=== PATIENT | female | born 1985 | race Caucasian/White ===

== ENCOUNTER → 2017-02-04 14:30 | Observation (INO) ==
[2017-02-04 13:55] LABS: Bilirubin,Urine Negative (Negative); Blood,Urine Negative (Negative); Clarity,Urine Clear (Clear); Color,Urine Yellow (Yellow); Glucose,Urine (UA) Normal (Normal); Ketones,Urine Negative (Negative); Leukocyte Esterase,Urine Negative (Negative); Nitrite,Urine Negative (Negative); PH,Urine 6.5 pH Units (5.0-8.0); Protein,Urine Negative (Neg-Trace); Specific Gravity,Urine 1.012 (1.010-1.025); Urobilinogen,Urine Normal (Normal)
[2017-02-04 14:06] LABS: Amphetamine Screen,Urine Negative ng/mL (Cutoff=1000); Barbiturate Screen,Urine Negative ng/mL (Cutoff=200); Benzodiazepines Screen,Urine Negative ng/mL (Cutoff=200); Cannabinoid Screen,Urine Negative ng/mL (Cutoff = 50); Cocaine Screen,Urine Negative ng/mL (Cutoff= 300); Opiate Screen,Urine Negative ng/mL (Cutoff=300); Phencyclidine Screen,Urine Negative ng/mL (Cutoff=25)
--- NOTE | 2017-02-04 14:19 | OB/GYN Progress Note ---
Date of Encounter: 02/04/17 Time of Encounter: 14:17 - Assessment and Plan (1) 29 weeks gestation of Current Visit: Yes Status: Acute (2) Constipation Current Visit: Yes Status: Acute Will try Colace and possibly prunes. Importance of adequate hydration also discussed. Pt will notify her OB doc if her symptoms worsen or do not improve. Discharge home with precautions. Qualifiers: Constipation type: slow transit constipation Qualified Code(s): K59.01 - Slow transit constipation Subjective - Subjective Interval history: 31 year-old presenting at 29w1d with c/o loss of mucus plug 3 days ago with new onset rectal pressure today. She reports irregular bowel movements with small amounts. She states she believes she is constipated. Good FM. No contractions, LOF, VB, or other complaints. Antepartum ROS: movement normal, no loss of fluid, no vaginal bleeding, no contractions Objective - Vital Signs Vital Signs: Intake and Output 02/03/17 02/04/17 02/04/17 23:59 07:59 15:59 Other: Weight 132.8 kg Patient Weight 02/04/17 23:59 Weight 132.8 kg - Exam FHR: category 1 FHR comments: NST reactive for GA. Auscultation: bilateral: normal Abdomen: Present: soft, gravid Uterus: Absent: tenderness
== END | disposition home or self-care (01) ==
LOC: 1NENULAB
PROVIDERS: ADMIT Student in an Organized Health Care Education/Training Program; ATTEND Student in an Organized Health Care Education/Training Program

== ENCOUNTER 2017-04-15 06:00 | Inpatient (IN) ==
[2017-04-15] MEDS ORDERED: Metoclopramide 10 MG/2 ML VIAL IVP PRN (06:42)
[2017-04-15] MEDS ORDERED: *HR* Nalbuphine 20 MG/ML AMPUL IVP PRN (06:42)
[2017-04-15] MEDS ORDERED: Naloxone 0.4 MG/ML INJ IVP PRN (06:42)
[2017-04-15] MEDS ORDERED: Famotidine 20 MG/2 ML VIAL IVP PRN (06:42)
--- NOTE | 2017-04-15 07:00 | OB/GYN History & Physical ---
Date of Encounter: 04/15/17 Time of Encounter: 06:57 Assessment and Plan (1) 39 weeks gestation of Current visit: Yes Status: Acute Patient presents to L&D for elective induction. Denies contractions, loss of fluid or vaginal bleeding Good movement. Induction with Cytotec LR at 125ml/hr monitoring Plan for vaginal delivery Per medical record-last visit 04/13 patient was 3/60/-1 (2) Elective induction of labor planned Current visit: Yes Status: Acute Patient is here for an elective induction of labor. Induce with cytotec History of Present Illness HPI: Ms. Morton is a 31 year old female at 39w1d presents to L&D for IOL. She states that this is an elective induction. Patient reports that she is being induced because she is exhausted and family has taken time off to help with the baby at home. Patient denies any loss of fluid, vaginal bleeding or discharge. Reports good movement. Denies any contractions. Denies any pain. Denies any complications with the . Denies any complication with previous and states that it was a spontaneous vaginal delivery. Per medical records the patient has had 3 spontaneous abortions. States that she regularly sees Dr. Davies in the office. Blood type A+ GBS-negative Rubella IgG antibody-Postive 160.8 HbSAG-Nonreactive U-Dmrerwui-Ilpofzwxgql Varicella IgG Antibody-Positive 3.53 HIV-nonreactive Hx of Chlamydia Past Med Surg Social Fam HX - Past Medical History Medical history: no medical history Psychiatric history: no psych history - Past Surgical History Surgical History: no surgical history - Social History Smoking Status: Never smoker Alcohol use: none Drug use: none - Family History Sister Age: 26 Living Status: Still Living Hx Family Cardiac Disorders: No Hx Family Respiratory Disorders: No Hx Family Cancer: No Hx Family GI Disorders: No Hx Family Genitourinary Disorders: No Hx Family Endocrine Disorder: No Hx Family Musculoskeletal Disorders: No Hx Family Neuromuscular Disorders: No Hx Family Neurologic Disorders: No Hx Family HEENT Disorders: No Hx Family Autoimmune Disorders: No Hx Family Reproductive Disorders: No Hx Family Psychosocial Disorders: No Hx Family Medical Disorders: No Obstetrical History - Pregnancies : 5 Para: 1 Term: 1 : 0 Ab's: 3 Livin Medications and Allergies Formula Tablet 1 tab PO DAILY 04/15/17 [History] 3 Allergy/AdvReac Type Severity Reaction Status Date / Time No Known Allergies Allergy Verified 09/23/15 11:02 Review of System OB All systems PM: reviewed and no additional remarkable complaints except as stated Exam - Vital Signs Vital signs: Initial Vital Signs Temp Pulse Resp BP 97.0 F L 96 16 121/71 04/15/17 06:23 04/15/17 06:23 04/15/17 06:23 04/15/17 06:23 - Constitutional Constitutional: well developed, well nourished, no acute distress - Neck Neck exam: full ROM - Lungs Respiratory exam: CTAB - Cardiovascular Cardiovascular exam: RRR, +S1, +S2 - Abdomen Abdomen: Present: bowel sounds normal, gravid, non tender - Extremities Deep Tendon Reflex Grade: 2+ Normal - Vagina Vagina: Present: normal moisture - Cervix Dilation: 3 (Per MD at last visit) Effacement: 60 (Per MD at last visit) Station: -1 (Per MD at last visit) - Anus/Rectum Anus/Rectum: Present: normal perianal skin Results Result Diagrams: 04/15/17 07:00 All other labs normal. - VTE Reasons for not Prescribing Prophylaxis: Treatment not Indicated - Low risk for VTE
[2017-04-15 07:14] LABS: Amphetamine Screen,Urine Negative ng/mL (Cutoff=1000); Barbiturate Screen,Urine Negative ng/mL (Cutoff=200); Benzodiazepines Screen,Urine Negative ng/mL (Cutoff=200); Cannabinoid Screen,Urine Negative ng/mL (Cutoff = 50); Cocaine Screen,Urine Negative ng/mL (Cutoff= 300); Opiate Screen,Urine Negative ng/mL (Cutoff=300); Phencyclidine Screen,Urine Negative ng/mL (Cutoff=25)
[2017-04-15 07:18] LABS: Basophils % 0.2 %; Eosinophils # 0.1 K/mcL (0.0-0.6); Eosinophils % 0.7 %; Hemoglobin 11.2 g/dL (11.5-15.4); Immature Granulocytes % 1.1 % (0-4); Lymphocytes # 2.1 K/mcL (0.6-4.6); Lymphocytes % 20.3 %; Mean Corpuscular HGB Conc 32.9 g/dL (31.6-35.5); Mean Corpuscular Hemoglobin 28.3 pg (28.0-33.3); Mean Corpuscular Volume 85.9 fL (83.0-100.0); Mean Platelet Volume 10.5 fL (9.4-12.4); Monocytes # 0.6 K/mcL (0.0-1.3); Monocytes % 5.8 %; Neutrophils # 7.4 K/mcL (1.6-8.9); Platelet Count 296 K/mcL (140-400); Red Blood Count 3.96 M/mcL (3.82-4.97); Red Cell Distribution Width 14.8 % (11.5-14.5); Segmented Neutrophils % 71.9 %
[2017-04-15] MEDS: Ringers Solution, Lactated 1,000 ML IVC SCH ×2 (07:53→18:24)
[2017-04-15] MEDS ORDERED: miSOPROStol 25 MCG TABLET PO SCH (08:00)
--- NOTE | 2017-04-15 10:04 | Anesthesia Evaluation PreOp ---
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: Denies Any Significant HX Other Medical History: GERD Anesthesia History: No Prior Anesthetic Complications, Past Anesthesia ( attemped tino 5 years ago) : Yes Test: Positive Alcohol Use: none Drug use: none Medications and Allergies Formula Tablet 1 tab PO DAILY 04/15/17 [History] 3 Allergy/AdvReac Type Severity Reaction Status Date / Time No Known Allergies Allergy Verified 09/23/15 11:02 - Meds/Allergy Pre-op Review Medications Reviewed: Yes Allergies Reviewed: Yes Beta Blockers on Current Med List: No Anesthesia Results - Labs 04/15/17 07:00 Anesthesia Exam 121/72 86 16 fht 139 Height: 5'7" Weight: 139 kg NPO (# of Hours): 5 Pain Scale: 0 Pain Scale Used: Numeric (1 - 10) - HEENT Pupil (Motor): Pupils equal Mallampati: II Teeth: Normal Oral Opening: Greater than 3 - NOVELTIES SALES REPRESENTATIVE LOC: Oriented NOVELTIES SALES REPRESENTATIVE Motor: Normal RUE, Normal LUE, Normal RLE, Normal LLE, Normal Face NOVELTIES SALES REPRESENTATIVE Sensory: Normal: RUE, LUE, RLE, LLE, Face - Cardiac Rhythm: Regular Murmur: None - Pulmonary Breath Sounds: bilateral Clear Respiratory Effort: Symmetrical Anesthesia Assess/Plan ASA Score: 3 (MO) Modified [place] Scale for Level of Consciousness: Cooperative, oriented, and tranquil Anesthetic Plan: Regional Autologous Blood: No Monitoring Plan: Standard Monitors Recovery Plan: Other (risks discussed, questions answered, consented)
--- NOTE | 2017-04-15 12:21 | OB Labor Progress Note ---
Date of Encounter: 04/15/17 Time of Encounter: 12:11 Labor Progress Note - Subjective Subjective: Pt feeling occasional contractions - Cervix Cervix: 4/50/-2 - Heart Tones Heart Tones: 130/moderate/+accels/-decels - [place]: occasional contractions - Plan Plan: second dose of 50mcg po cytotec Anticipate
--- NOTE | 2017-04-15 16:20 | OB Labor Progress Note ---
Date of Encounter: 04/15/17 Time of Encounter: 16:18 Labor Progress Note - Subjective Subjective: Pt states she is feeling stronger contractions - Cervix Cervix: 4/75/-2 - Heart Tones Heart Tones: 140/moderate/+accels/-decels - [place]: occasional .IUPC placed - Interventions Interventions: AROM for slightly blood tinged fluid. IUPC and FSE placed - Plan Plan: If no cervical change will start pitocin per policy Anticipate
[2017-04-15] MEDS ORDERED: *HR* FentaNYL (PF) 100 MCG/2 ML VIAL ONE (17:45)
[2017-04-15] MEDS ORDERED: Epidural Premix (fent/bupiv) 110 ML EP ONE (17:45)
[2017-04-15] MEDS ORDERED: *HR* Ropivacaine/PF 0.2% 10 ML AMPUL ONE (17:45)
[2017-04-15] MEDS ORDERED: *HR* Ropivacaine/PF 0.2% 10 ML AMPUL EP ONE (17:48)
[2017-04-15] MEDS ORDERED: *HR* FentaNYL (PF) 100 MCG/2 ML VIAL EP ONE (17:48)
[2017-04-15] MEDS ORDERED: Epidural Premix (fent/bupiv) 110 ML EP SCH (18:00)
[2017-04-15] MEDS ORDERED: Oxytocin 20 units/ LR 1000 mL 20 UNIT/1,000 ML BAG IVC ONE (18:19)
--- NOTE | 2017-04-15 18:24 | Anesthesia Procedures ---
Date of Encounter: 04/15/17 Time of Encounter: 18:22 Procedures: Anesthesia - Epidural/Spinal Patient ID/Chart reviewed: Yes Patient examined: Yes OB Eval: Gestational age: 39 OB Eval: : 5 OB Eval: Hx Para: 1 OB Eval: Dilated at (cm): 4 OB Eval: Contractions: Non-stressed pattern Site Prep: Aseptic Technique, Sterile prep and drape, 0.5% Chlorhexidine/Alcohol Patient position: upright Local Anesthetic: Lidocaine 1% Amount of Local Anesthetic used: 3 Touhy Needle Gauge: 18 Touhy Needle Depth (cm): 10 Catheter Depth at Skin (cm): 20 Test Dose (1.5% Lido + Epi): Volume given (mls): 3 Test Dose Result: Negative Loading Dose: Fentanyl (mcg): 100 Loading Dose: Other: ropivicaine 0.2% 10ml Loading Dose Administered: Thru Touhy Needle Infusion Med: 0.125% Bupivacaine w/ 2 mcg/ml Fentanyl Infusion Rate (mls/hr): 15 (pcea 5 cc q 30") Catheter Secured in Place: Tegaderm Interspace Used: L3-L4 Loss of Resistance (SYEDA): Yes Blood: No CSF: No Paresthesia: No Procedure: aseptic, tolerated well, VSS, effective Vitals + FHT's: 134/78 88 fht 138
--- NOTE | 2017-04-15 21:57 | OB/GYN Procedure Note ---
Delivery - Delivery Date: 04/15/17 Provider: Noe Davies Intrapartum events: none Delivery induction: AROM Delivery augmentation: pitocin Delivery monitor: external FHT, external uterine, internal FHT, internal uterine Anesthesia: epidural Estimated Blood Loss: 300 - Infant (s) Infant A Delivery Date: 04/15/17 Delivery Time: 21:01 Presentation: vertex Position: YURIY Gender: Male Viability: Viable Weight Gram: 3.25 kg at 1 minute: 3 at 5 mins: 8 Shoulder Dystocia: not encountered Specimens collected: cord blood Placenta: spontaneous Cord: nuchal cut - Repair Episiotomy: none Laceration Description: Perineal - 2nd Degree - Complications Delivery complications: none - Disposition Mom disposition: stable in LDR disposition: stable in LDR - Comments Comments: Patient progressed to complete and on the perineum. Category 2 strip was noted. The head delivered spontaneously from right occiput anterior position. Tight nuchal cord 1 was noted and was clamped cut and relieved. The baby subsequently delivered. The baby's weight was pending and had Apgars of 3 and 8. Placenta delivered spontaneously intact. Patient had a second-degree perineal laceration that was repaired in anatomic fashion with 3-0 Monocryl. Estimated blood loss was 300 mL's.
[2017-04-15] MEDS ORDERED: Measles/Mumps/Rubella Vacc 0.5 ML VIAL SQ PRN (22:22)
[2017-04-15] MEDS ORDERED: Acetaminophen 325 MG TABLET PO PRN (22:22)
[2017-04-15] MEDS ORDERED: Oxytocin 20 units/ LR 1000 mL 20 UNIT/1,000 ML BAG IVC SCH (22:22)
[2017-04-15] MEDS: Ibuprofen 600 MG TABLET PO PRN (23:06)
[2017-04-16 04:46] LABS: Basophils % 0.2 %; Eosinophils # 0.1 K/mcL (0.0-0.6); Eosinophils % 0.8 %; Immature Granulocytes % 0.5 % (0-4); Lymphocytes # 2.2 K/mcL (0.6-4.6); Lymphocytes % 16.9 %; Mean Corpuscular HGB Conc 32.3 g/dL (31.6-35.5); Mean Corpuscular Hemoglobin 27.6 pg (28.0-33.3); Mean Corpuscular Volume 85.6 fL (83.0-100.0); Mean Platelet Volume 10.4 fL (9.4-12.4); Monocytes # 0.8 K/mcL (0.0-1.3); Monocytes % 6.1 %; Neutrophils # 9.8 K/mcL (1.6-8.9); Platelet Count 255 K/mcL (140-400); Red Blood Count 3.62 M/mcL (3.82-4.97); Segmented Neutrophils % 75.5 %
[2017-04-16] MEDS ORDERED: Prenatal Vit/FA 1 EACH TABLET PO SCH ×2 (09:00)
[2017-04-16] MEDS: Ibuprofen 600 MG TABLET PO PRN (09:09)
--- NOTE | 2017-04-16 09:18 | Discharge Summary ---
Date of Encounter: 04/16/17 Time of Encounter: 09:15 - Discharge Diagnosis (1) Vaginal delivery Priority: Primary Status: Acute Comments: Continue routine care discharge home today follow up with Dr. Davies in 4-6 weeks (2) Second degree perineal laceration during delivery Priority: Secondary Status: Acute Comments: Continue colace stiz baths prn - Discharge Medications Prescriptions: Ibuprofen [Motrin] 600 mg PO Q6HR PRN #60 tablet PRN Reason: Cramping Docusate [Colace] 100 mg PO BID #60 capsule Home Medications: Formula Tablet 1 tab PO DAILY 04/15/17 [History] Docusate [Colace] 100 mg PO BID #60 capsule 04/16/17 [Rx] Ibuprofen [Motrin] 600 mg PO Q6HR PRN #60 tablet 04/16/17 [Rx] Vit/FA 1 each PO DAILY tablet 04/16/17 [Rx] Allergies/Adverse Reactions: 3 Allergy/AdvReac Type Severity Reaction Status Date / Time No Known Allergies Allergy Verified 09/23/15 11:02 Data Procedures and tests throughout hospitalization: Laboratory Tests 04/15/17 04/15/17 04/16/17 07:00 07:00 04:27 WBC 10.3 12.9 H RBC 3.96 3.62 L Hgb 11.2 L 10.0 L Hct 34.0 L 31.0 L MCV 85.9 85.6 MCH 28.3 27.6 L MCHC 32.9 32.3 RDW 14.8 H 15.0 H Plt Count 296 255 MPV 10.5 10.4 Immature Gran % 1.1 0.5 Seg Neutrophils % 71.9 75.5 Lymphocytes % 20.3 16.9 Monocytes % 5.8 6.1 Eosinophils % 0.7 0.8 Basophils % 0.2 0.2 Neutrophils # 7.4 9.8 H Lymphocytes # 2.1 2.2 Monocytes # 0.6 0.8 Eosinophils # 0.1 0.1 Basophils # 0.0 0.0 Urine Opiates Screen Negative Ur Barbiturates Screen Negative Ur Phencyclidine Scrn Negative Ur Amphetamines Screen Negative U Benzodiazepines Scrn Negative Urine Cocaine Screen Negative U Marijuana (THC) Screen Negative Labs on day of discharge: Labs from last 24 hours 04/16/17 04:27 WBC 12.9 H RBC 3.62 L Hgb 10.0 L Hct 31.0 L MCV 85.6 MCH 27.6 L MCHC 32.3 RDW 15.0 H Plt Count 255 MPV 10.4 Immature Gran % 0.5 Seg Neutrophils % 75.5 Lymphocytes % 16.9 Monocytes % 6.1 Eosinophils % 0.8 Basophils % 0.2 Neutrophils # 9.8 H Lymphocytes # 2.2 Monocytes # 0.8 Eosinophils # 0.1 Basophils # 0.0 Date of admission: 04/15/17 06:07 Primary care physician: Erendira Klein CNP Consults: 04/15/17 22:22 Consult to Firesetter [CONS] Routine Comment: Vaginal delivery, consult needed Discharging clinician: Arabella Zuniga Anticipated date of discharge: 04/16/17 - Patient Status Disposition: Home, Self-Care Condition: Good Functional capacity at discharge: independent ambulation - Discharge Instructions Follow Up With: Erendira Klein CNP [Primary Care Provider] - Noe Davies MD [Partnered Physician] - - Diet and Activity Activity: increase activity as tolerated Diet: regular diet Hospital Course Delivery: Episiotomy: none Laceration: 2nd degree Other procedures: none complications: none Discharge diagnosis: IUP at term delivered [place] baby: male (bottle feeding) Time Attestation: Total time spent providing and/or coordinating discharge services: Time Spent: Less than 30 minutes Exam - Constitutional Vitals: Temp Pulse Resp BP Pulse Ox 97.6 F 73 16 101/68 96 04/16/17 07:50 04/16/17 07:50 04/16/17 07:50 04/16/17 07:50 04/16/17 07:50 General appearance IM: A&O X 3, pleasant, obese - GI/Abdominal GI/Abdominal exam IM: normal bowel sounds - Uterine Tone: Firm Uterus Position: 1 Finger Below Umbilicus, Midline - Extremities Exam Extremities exam IM: Present: full ROM, normal capillary refill - Neurological Exam Neurological exam: alert, oriented X3, reflexes normal
[2017-04-16 20:24] VITALS: BP 111/73
== END 2017-04-16 23:55 | disposition home or self-care (01) | DRG 775 ==
LOC: 1NENULAB 06:07 → 1NENUOBS 04-16 00:25
PROVIDERS: ADMIT Obstetrics & Gynecology; ATTEND Obstetrics & Gynecology